=== PATIENT | female | born 1935 | race Caucasian/White ===

== ENCOUNTER 2016-11-18 08:01 | Emergency (ER) | payer MEDICARE, BC ==
[2016-11-18] MEDS ORDERED: Lactated Ringers 1,000 ML IV ONE (08:40)
[2016-11-18] MEDS ORDERED: Metoclopramide 10 MG/2 ML SDV IVPUSH ONE (08:40)
--- NOTE | 2016-11-18 09:00 | EDM.PDOC ---
ED HPI GI/ABDOMINAL - General Chief Complaint: Gastrointestinal Problem Stated Complaint: LOOSE STOOL /STOMACH Time Seen by Provider: 11/18/16 08:45 Source: Reports: Patient History Limitations: Reports: No limitations - History of Present Illness INITIAL COMMENTS - FREE TEXT/NARRATIVE: 81 yo female presents with 5 days of diarrhea and nausea without vomiting. No fever. No blood in stools. Minimal dizziness with standing. Dr. Barboza told her to come to the ER. Symptom Onset Date: 11/13/16 Timing/Duration: Reports: Day(s): Location: generalized (mild generalized abdominal pain/cramps) Quality: Reports: cramping Severity: mild Improves with: Reports: other (stooling) Worsens with: Reports: other (eating) Context: Reports: other (Had similar phenomenon in the past, not for many yrs.) Associated Symptoms (-Female): Reports: diarrhea, loss of appetite, nausea/ vomiting (no vomiting so far.). 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: Reports: Other (see below) (none) - Related Data Allergies/ADRs: Allergies Allergy/AdvReac Type Severity Reaction Status Date / Time No Known Allergies Allergy Verified 11/18/16 09:59 Home Meds: Home Meds HCTZ/Triamterene [Dyazide 25-37.5 MG] 1 cap PO DAILY 11/18/16 [History] Nitroglycerin [Nitrostat] 0.4 mg SL ASDIRECTED PRN 11/18/16 [History] amLODIPine [Norvasc] 5 mg PO DAILY 11/18/16 [History] ED ROS GENERAL - Review of Systems Review Of Systems: See Below Constitutional: Reports: no symptoms HEENT: Reports: No symptoms Respiratory: Reports: No Symptoms Cardiovascular: Reports: No symptoms GI/Abdominal: Reports: Abdominal pain (mild cramping.), Diarrhea, Decreased appetite, Nausea. Denies: Black stool, Bloody stool, Constipation, Distension, Flatus, Hematemesis, Hematochezia, Melena, Stool incontinence, Vomiting : Reports: no symptoms Musculoskeletal: Reports: no symptoms Skin: Reports: no symptoms Neurological: Reports: No Symptoms Psychiatric: Reports: No symptoms ED EXAM, GI/ABD - Physical Exam Exam: See Below Exam Limited By: No limitations General Appearance: alert, WD/WN, no apparent distress Eyes: bilateral: normal appearance Ears: normal external exam, normal canal, hearing grossly normal Nose: normal inspection, normal mucosa, no blood Throat/Mouth: Normal inspection, Normal lips, Normal teeth, Normal oropharynx, Normal voice, No airway compromise Head: atraumatic, normocephalic Neck: normal inspection, supple, non-tender Respiratory/Chest: no respiratory distress, lungs clear, normal breath sounds, no accessory muscle use Cardiovascular: regular rate, rhythm, no edema GI/Abdominal: normal bowel sounds, soft, non tender, no distention Back Exam: normal inspection Extremities: normal inspection, normal range of motion, non-tender, no pedal edema Neurological: alert, oriented, CN II-XII intact, normal cognition, no motor/ sensory deficits Psychiatric: normal affect, normal mood Skin Exam: Warm, Dry, Intact, Normal color, No rash Lymphatic: no adenopathy Course - Vital Signs Text/Narrative:: LR 1000 ml IV, Reglan 10 mg IV-feeling better, unable to stool. Last Recorded V/S: Last Vital Signs Temp 36.8 C 11/18/16 08:30 Pulse 60 11/18/16 08:30 Resp 18 11/18/16 08:30 BP 145/53 H 11/18/16 08:30 Pulse Ox 98 11/18/16 08:30 - Orders/Labs/Meds Orders: Active Orders 24 hr Category Date Time Status CDIFF TOXIN A+B GROUP [OP] Stat Lab 11/18/16 08:49 Uncollected Labs: Laboratory Tests 11/18/16 11/18/16 Range/Units 09:25 09:25 WBC 6.2 (4.5-12.0) X10-3/uL RBC 4.29 (3.23-5.20) x10(6)uL Hgb 13.0 (11.5-15.5) g/dL Hct 39.0 (30.0-51.3) % MCV 91.0 (80-96) fL MCH 30.3 (27.7-33.6) pg MCHC 33.2 (32.2-35.4) g/dL RDW 12.6 (11.5-15.5) % Plt Count 235 (125-369) X10(3)uL Sodium 136 (135-145) mmol/L Potassium 3.9 (3.5-5.3) mmol/L Chloride 105 (100-110) mmol/L Carbon Dioxide 25 (23-29) mmol/L BUN 23 (8-23) mg/dL Creatinine 0.6 (0.6-1.3) mg/dL Est Cr Clr Drug Dosing TNP Estimated GFR (MDRD) > 60 (>60) BUN/Creatinine Ratio 38.3 H (9-20) Glucose 106 (80-116) mg/dL Calcium 8.9 (8.6-10.2) mg/dL Meds: Medications Discontinued Medications Generic Name Dose Route Start Last Admin Trade Name Freq PRN Reason Stop Dose Admin Lactated Ringer's 1,000 mls @ 1,000 mls/hr 11/18/16 08:40 11/18/16 09:09 Ringers, Lactated IV 11/18/16 09:39 1,000 mls/hr BOLUS ONE Administration Metoclopramide HCl 10 mg 11/18/16 08:40 11/18/16 09:14 Reglan IVPUSH 11/18/16 08:41 10 mg ONETIME ONE Administration Departure - Departure Time of Disposition: 10:25 Disposition: Home, Self-Care 01 Condition: good Clinical Impression: Nausea Diarrhea Qualifiers: Diarrhea type: unspecified type Qualified Code(s): R19.7 - Diarrhea, unspecified - My Orders Last 24 Hours: My Active Orders 11/18/16 08:49 CDIFF TOXIN A+B GROUP [OP] Stat - Assessment/Plan Last 24 Hours: My Active Orders 11/18/16 08:49 CDIFF TOXIN A+B GROUP [OP] Stat
[2016-11-18 10:37] VITALS: BP 138/55
== END 2016-11-18 10:30 | disposition home or self-care (01) ==
LOC: FB.ED 08:01
DX: R19.7 Diarrhea, unspecified (principal)
CPT/HCPCS: 36415; 80048; 85027; 96361; 96374; 99283; J2765; J7120; 99284

== ENCOUNTER 2017-02-03 06:43 | Emergency (ER) | payer MEDICARE, BC ==
[2017-02-03] MEDS ORDERED: Sodium Chloride 0.9% 1,000 ML IV ONE (07:26)
[2017-02-03] MEDS ORDERED: Sodium Chloride 0.9% 10 ML Syringe FLUSH PRN (07:33)
[2017-02-03] MEDS ORDERED: cloNIDine 0.1 MG Tab PO ONE (08:58)
--- NOTE | 2017-02-03 09:25 | EDM.PDOC ---
ED HPI GENERAL MEDICAL PROBLEM - General Chief Complaint: Gastrointestinal Problem Stated Complaint: DIARRHEA,DEHYDRATING Time Seen by Provider: 02/03/17 07:08 Source of Information: Reports: Patient, Family History Limitations: Reports: No Limitations - History of Present Illness INITIAL COMMENTS - FREE TEXT/NARRATIVE: 81 y.o.w.f with h/o HTN came to the ed because she feels dehydrated, weight loss -unwanted- her BP on arrival was 197/87 and later on 220/80. Pt was recently started on lisinopril, which makes her cough, No N/V/D dizziness or any other acute medical issues at this time. Onset: Gradual Onset Date: 02/02/17 Onset Time: 08:00 Duration: Day(s): Location: Reports: Generalized Severity: Moderate Improves with: Reports: None Worsens with: Reports: None Associated Symptoms: Reports: No Other Symptoms Generalized Pain Score (Numeric/FACES): 5 - Related Data Allergies Allergy/AdvReac Type Severity Reaction Status Date / Time No Known Allergies Allergy Verified 02/03/17 07:03 Home Meds: Home Meds Nitroglycerin [Nitrostat] 0.4 mg SL ASDIRECTED PRN 11/18/16 [History] amLODIPine [Norvasc] 5 mg PO DAILY 11/18/16 [History] Escitalopram [Lexapro] 10 mg PO DAILY 02/03/17 [History] Hydrochlorothiazide 25 mg PO DAILY 02/03/17 [History] Lisinopril 10 mg PO DAILY 02/03/17 [History] Losartan [Cozaar] 25 mg PO DAILY #10 tablet 02/03/17 [Rx] Past Medical History Cardiovascular History: Reports: Hypertension, Stents Social & Family History - Tobacco Use Smoking Status *Q: Never Smoker Second Hand Smoke Exposure: No - Caffeine Use Caffeine Use: Reports: Coffee, Tea - Recreational Drug Use Recreational Drug Use: No ED ROS GENERAL - Review of Systems Review Of Systems: See Below Constitutional: Reports: No Symptoms HEENT: Reports: No Symptoms Respiratory: Reports: No Symptoms Cardiovascular: Reports: No Symptoms Endocrine: Reports: No Symptoms GI/Abdominal: Reports: No Symptoms : Reports: No Symptoms Musculoskeletal: Reports: No Symptoms Skin: Reports: No Symptoms Neurological: Reports: No Symptoms Psychiatric: Reports: No Symptoms Hematologic/Lymphatic: Reports: No Symptoms Immunologic: Reports: No Symptoms ED EXAM, GENERAL - Physical Exam Exam: See Below Exam Limited By: No Limitations General Appearance: Alert, WD/WN, Thin Eye Exam: Bilateral Eye: Normal Inspection Ears: Normal External Exam Ear Exam: Bilateral Ear: Auricle Normal Nose: Normal Inspection, Normal Mucosa Throat/Mouth: Normal Inspection, Normal Lips Head: Atraumatic, Normocephalic Neck: Normal Inspection, Supple, Non-Tender Respiratory/Chest: No Respiratory Distress, Lungs Clear, Normal Breath Sounds, No Accessory Muscle Use, Chest Non-Tender Cardiovascular: Normal Peripheral Pulses, Regular Rate, Rhythm Peripheral Pulses: 1+: Femoral (L), Femoral (R) GI/Abdominal: Normal Bowel Sounds, Soft, Non-Tender, No Organomegaly, No Distention, No Abnormal Bruit (Female) Exam: Deferred Rectal (Female) Exam: Deferred Back Exam: Normal Inspection, Full Range of Motion Extremities: Normal Inspection, Normal Range of Motion Neurological: Alert, Oriented, CN II-XII Intact, Normal Cognition, Normal Gait, No Motor/Sensory Deficits Psychiatric: Normal Affect, Normal Mood Skin Exam: Warm, Dry, Intact, Normal Color, No Rash Lymphatic: No Adenopathy Course - Vital Signs Text/Narrative:: 81 y.o.w.f with h/o HTN came to the ed because she feels dehydrated, weight loss -unwanted- her BP on arrival was 197/87 and later on 220/80. Pt was recently started on lisinopril, which makes her cough, No N/V/D dizziness or any other acute medical issues at this time. PE: Thin 81 y.o.w.f. in NAD BP 220/80 puls 70 Impression: hypertensive urgency Tx: Clonidine 0.1 mg Reexam: BP 135/68 Plan: Pt was d/c'd with instructions Last Recorded V/S: Last Vital Signs Temp 36.8 C 02/03/17 07:08 Pulse 55 L 02/03/17 11:09 Resp 20 02/03/17 07:08 BP 135/63 02/03/17 11:09 Pulse Ox 98 02/03/17 07:08 81 y.o.w.f with h/o HTN came to the ed because she feels dehydrated, weight loss -unwanted- her BP on arrival was 197/87 and later on 220/80. Pt was recently started on lisinopril, which makes her cough, No N/V/D dizziness or any other acute medical issues at this time. - Orders/Labs/Meds Orders: Active Orders 24 hr Category Date Time Status Saline Lock Insert [OM.PC] Routine Oth 02/03/17 07:33 Ordered Labs: Laboratory Tests 02/03/17 02/03/17 02/03/17 Range/Units 07:25 07:25 07:25 WBC 6.6 (4.5-12.0) X10-3/uL RBC 4.41 (3.23-5.20) x10(6)uL Hgb 13.6 (11.5-15.5) g/dL Hct 40.5 (30.0-51.3) % MCV 91.7 (80-96) fL MCH 30.8 (27.7-33.6) pg MCHC 33.6 (32.2-35.4) g/dL RDW 12.1 (11.5-15.5) % Plt Count 247 (125-369) X10(3)uL MPV 8.4 (7.4-10.4) fL Neut % (Auto) 68.3 (46-82) % Lymph % (Auto) 18.5 (13-37) % [place] % (Auto) 9.4 (4-12) % Eos % (Auto) 3 (1.0-5.0) % Baso % (Auto) 1 (0-2) % Neut # (Auto) 4.6 (1.6-8.3) # Lymph # (Auto) 1.2 (0.6-5.0) # [place] # (Auto) 0.6 (0.0-1.3) # Eos # (Auto) 0.2 (0.0-0.8) # Baso # (Auto) 0.0 (0.0-0.2) # Sodium 136 (135-145) mmol/L Potassium 4.0 (3.5-5.3) mmol/L Chloride 101 (100-110) mmol/L Carbon Dioxide 27 (23-29) mmol/L BUN 19 (8-23) mg/dL Creatinine 0.7 (0.6-1.3) mg/dL Est Cr Clr Drug Dosing 42.88 mL/min Estimated GFR (MDRD) > 60 (>60) BUN/Creatinine Ratio 27.1 H (9-20) Glucose 104 (80-116) mg/dL Calcium 9.5 (8.6-10.2) mg/dL B-Natriuretic Peptide 231 H (0-100) pg/mL Urine Color (YELLOW) Urine Appearance (CLEAR) Urine pH (5.0-6.5) Ur Specific [place] (1.010-1.025) Urine Protein (NEGATIVE) mg/dL Urine Glucose (UA) (NEGATIVE) mg/dL Urine Ketones (NEGATIVE) mg/dL Urine Occult Blood (NEGATIVE) Urine Nitrite (NEGATIVE) Urine Bilirubin (NEGATIVE) Urine Urobilinogen (NEGATIVE) mg/dL Ur Leukocyte Esterase (NEGATIVE) Urine WBC (0) Ur Squamous Epith Cells (NS,R,O) Urine Bacteria (NS) 02/03/17 Range/Units 08:59 WBC (4.5-12.0) X10-3/uL RBC (3.23-5.20) x10(6)uL Hgb (11.5-15.5) g/dL Hct (30.0-51.3) % MCV (80-96) fL MCH (27.7-33.6) pg MCHC (32.2-35.4) g/dL RDW (11.5-15.5) % Plt Count (125-369) X10(3)uL MPV (7.4-10.4) fL Neut % (Auto) (46-82) % Lymph % (Auto) (13-37) % [place] % (Auto) (4-12) % Eos % (Auto) (1.0-5.0) % Baso % (Auto) (0-2) % Neut # (Auto) (1.6-8.3) # Lymph # (Auto) (0.6-5.0) # [place] # (Auto) (0.0-1.3) # Eos # (Auto) (0.0-0.8) # Baso # (Auto) (0.0-0.2) # Sodium (135-145) mmol/L Potassium (3.5-5.3) mmol/L Chloride (100-110) mmol/L Carbon Dioxide (23-29) mmol/L BUN (8-23) mg/dL Creatinine (0.6-1.3) mg/dL Est Cr Clr Drug Dosing mL/min Estimated GFR (MDRD) (>60) BUN/Creatinine Ratio (9-20) Glucose (80-116) mg/dL Calcium (8.6-10.2) mg/dL B-Natriuretic Peptide (0-100) pg/mL Urine Color Yellow (YELLOW) Urine Appearance Clear (CLEAR) Urine pH 8.0 H (5.0-6.5) Ur Specific [place] 1.010 (1.010-1.025) Urine Protein Negative (NEGATIVE) mg/dL Urine Glucose (UA) Normal (NEGATIVE) mg/dL Urine Ketones Negative (NEGATIVE) mg/dL Urine Occult Blood Negative (NEGATIVE) Urine Nitrite Negative (NEGATIVE) Urine Bilirubin Negative (NEGATIVE) Urine Urobilinogen Normal (NEGATIVE) mg/dL Ur Leukocyte Esterase Negative (NEGATIVE) Urine WBC 0-5 (0) Ur Squamous Epith Cells Occasional (NS,R,O) Urine Bacteria Moderate H (NS) Meds: Medications Discontinued Medications Generic Name Dose Route Start Last Admin Trade Name Freq PRN Reason Stop Dose Admin Clonidine HCl 0.1 mg 02/03/17 08:58 02/03/17 09:03 Catapres PO 02/03/17 08:59 0.1 mg ONETIME ONE Administration Sodium Chloride 1,000 mls @ 999 mls/hr 02/03/17 07:26 02/03/17 07:58 Normal Saline IV 02/03/17 08:26 999 mls/hr .BOLUS ONE Administration Sodium Chloride 10 ml 02/03/17 07:33 Saline Flush FLUSH ASDIRECTED PRN Keep Vein Open Departure - Departure Time of Disposition: 11:25 Disposition: Home, Self-Care 01 Condition: good Clinical Impression: HTN (hypertension) Qualifiers: Hypertension type: essential hypertension Qualified Code(s): I10 - Essential ( primary) hypertension - Discharge Information Prescriptions: Losartan [Cozaar] 25 mg PO DAILY #10 tablet Referrals: Alejandro Barboza MD [Primary Care Provider] - Forms: ED Department Discharge Additional Instructions: Please f/u with Dr Barboza as scheduled this Thursday, please take the meds as recommended, hold Lisinopril, take Losartan instead. Please come back if your symptoms get worse acutely - My Orders Last 24 Hours: My Active Orders 02/03/17 07:33 Saline Lock Insert [OM.PC] Routine - Assessment/Plan Last 24 Hours: My Active Orders 02/03/17 07:33 Saline Lock Insert [OM.PC] Routine
[2017-02-03 11:09] VITALS: BP 135/63
== END 2017-02-03 11:35 | disposition home or self-care (01) ==
LOC: FB.ED 06:43
DX: I16.0 Hypertensive urgency (principal); Z79.899 Other long term (current) drug therapy
CPT/HCPCS: 36415; 80048; 81001; 83880; 85025; 96360; 99283; 99284; A9270; J7040

== ENCOUNTER 2017-02-27 04:25 | Emergency (ER) | payer MEDICARE, BC ==
[2017-02-27 06:18] VITALS: BP 157/59
--- NOTE | 2017-02-27 07:08 | ER ---
DATE SEEN: 02/27/2017 ADDENDUM: Initially the plans were to discontinue losartan as it may be causing her blood pressure problems. However, after second blood pressure came back at 157/69, dropped from 190/57, heart rate 56, the plan is to continue the losartan at the current dose, 50 mg twice a day. Get 6 to 12 more blood pressure readings before going back to see the doctor later this week, in the next 7 to 10 days. Write the blood pressures down on a 3 x 5 card and carry those with her to the doctor and be sure to drink at least 2 quarts of water a day. She does not appear to have any renal or vascular abnormalities and she is not on an ANDREA inhibitor, and at this point, I do not plan on adding a new blood pressure pill hydrochlorothiazide as was previously dictated moments ago. No new med is prescribed because her BP has come down in the ED with simple rest and a tincture of time. Conjecture: It is possible that the losartan (calcium channel joselyn) is causing mild decrease in heart rate, resulting in a compensatory increase in blood pressure to maintain appropriate cardiac output in the face of atherosclerotic vascular disease. The patient was seen at 0425 hours. /[id number] LUCINA/KELSIE HENSON
--- NOTE | 2017-02-28 07:49 | ER ---
DATE SEEN: 02/27/2017 CHIEF COMPLAINT: The patient "feels like crap." HISTORY OF PRESENT ILLNESS: She started feeling miserable at about 0200 hours this morning. No history of nausea, vomiting, diarrhea, chest pain, irregular heartbeat, lightheadedness, back pain, arm pain, jaw pain, neck pain, syncope or near syncope, frequency, urgency, or dysuria. She denies any compromise in vision. On 02/24/2017, her losartan was increased from 25 mg b.i.d. to 50 mg b.i.d. She continues to take amlodipine 5 mg daily and she is worried about her blood pressure. Current medication as above medication plus Lexapro 10 mg daily and nitroglycerin p.r.n. No diabetes, asthma, other serious illnesses, or heart disease. She has had previous gastric surgery for gastric ulcers years ago. On 02/03/2017, she had a blood pressure 197/87 and later 220/80. She "had been started on lisinopril approximately several weeks before that." She was seen for gastrointestinal problems, diarrhea, and dehydration. Pressure before discharge on 02/03/17 was 135/63 after having been flushed with fluid and treated with clonidine 0.1 mg On 02/03/17 she had a trace elevation of her BNP 231. Otherwise, creatinine was 0.7 and BUN was 19 and the BUN and creatinine ratio was 27 reflecting dehydration. The had a GFR greater than 60. On 02/03/17 her urine is negative except for specific gravity 0.010. On 02/03/17 she was advised to hold lisinopril and start losartan 25 mg daily. On review of the chart November 18, 2016, she had also a history of 5 days of diarrhea with nausea without vomiting. Her blood pressure then was 145/53 and heart rate 60s. She had normal BMP except for elevated BUN and creatinine ratio of 38 reflecting dehydration also. PAST MEDICAL HISTORY: Hypertension. No diabetes. No heart disease, stroke, asthma, or surgery. PHYSICAL EXAMINATION: VITAL SIGNS: On February 03, she had blood pressure 165/68. This is different than a blood pressure she took earlier in the morning. Approximately at 3 a.m., it was 207/95 and 190/57 per history. Later this morning, on 02/27/2017, blood pressure is 190/57, heart rate 62, respirations 15, and oxygen saturation 98%. Mean blood pressure 101. 44.9 kg. GENERAL: Alert woman with mild headache. No paresis, weakness, or compromise of speech. HEENT: PERRLA intact. 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 Mild AV nicking. No hemorrhages or exudates. Hearing is decreased. Pharynx without abnormality. Slightly dry mucosa. NECK: No bruits. HEART: S2 greater than S1. No tachycardia. There is no heart murmur. LUNGS: Clear to auscultation. ABDOMEN: Soft. No guarding. No rebound. No bruits. Carotids, no bruits. EXTREMITIES: Without abnormality. No pedal edema. ABDOMEN: Otherwise, soft. NEUROLOGIC: Deep tendon reflexes hypoactive in upper extremities and lower extremities. Cranial nerves 2 through 12 intact. Strength appropriate. No pronator drift or paresis. Regulatory Affairs Consultant is good. Gait appropriate. Negative Romberg. CURRENT MEDICATIONS: 1. Norvasc 5 mg daily. 2. Losartan 100 mg daily. 3. Lexapro 10 mg daily. LABORATORY DATA: CBC and CMP pending. ASSESSMENT: 1. Hypertension, etiology indeterminate. Consider adding hydrochlorothiazide 25 mg daily. Follow up with doctor next week. If the blood pressure continues to climb, consider diagnosis renovascular- mediated renal artery stenosis. 2. 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 3. Hypertension. 4. Retinal copper wiring of vessels. PLAN: Continue losartan, a calcium channel joselyn, 50 mg b.i.d. /[id number] LUCINA/REKHAL MTDD
== END 2017-02-27 06:30 | disposition home or self-care (01) ==
LOC: FB.ED 04:25
DX: I10 Essential (primary) hypertension (principal); I35.9 Nonrheumatic aortic valve disorder, unspecified; I70.1 Atherosclerosis of renal artery; Z79.899 Other long term (current) drug therapy
CPT/HCPCS: 36415; 80053; 81001; 85025; 99283

== ENCOUNTER 2017-06-21 08:00 | Emergency (ER) | payer MEDICARE, BC ==
[2017-06-21] MEDS ORDERED: Dextrose 5%-Lactated Ringers 1,000 ML IV SCH (10:00)
[2017-06-21 12:22] VITALS: BP 151/52
--- NOTE | 2017-06-22 11:36 | CR ---
INDICATION: 3 days post EGD and colonoscopy, with abdominal pain. Question micro-perforation. Traumatic colitis. No symptoms of bowel obstruction. ABDOMEN: Four images of the abdomen in supine and upright projections revealed a nonspecific pattern of gas and feces without evidence of free air or obstruction. No organomegaly, mass lesions, or pathologic calcifications were identified, other than vascular calcifications. Calcifications are noted in the aorta. Surgery is noted in the left upper quadrant and hiatal area. Evidence of previous surgery is also noted in the pelvis at the level of the bladder. 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 IMPRESSION: Nonacute abdomen. Multiple findings as noted above. No evidence of free air. MTDD
--- NOTE | 2017-06-22 15:08 | ER ---
DATE SEEN: 06/21/2017 TIME SEEN: The patient was seen at 0820 hours. CHIEF COMPLAINT: This 81-year-old woman presents with chief complaint of abdominal discomfort, diarrhea 3 to 4 yesterday in the morning and 1 episode today, and vomiting x1. HISTORY OF PRESENT ILLNESS: She had colonoscopy performed on 06/17/2017 that was accompanied with EGD. She has felt weak since then and presented because she feels so weak today. She did have biopsies. She does not know what the results are. PAST MEDICAL HISTORY: Significant for hypertension. She uses aspirin on a daily basis 81 mg, amlodipine 5 mg b.i.d. Otherwise healthy. She has had multiple surgeries of her foot and toe, FESTUS-BSO, 72% resection of her stomach (gastrostomy) for ulcers years ago, hernia repair, left rotator cuff repair, T and A, cataract extraction, bladder suspension for prolapsed bladder, and 2 stents placed in 2014. ALLERGIES: Allergic to adhesive and hydrocodone. REVIEW OF SYSTEMS: Negative except she gets short of breath when she goes up the hill. GI: Denies blood in her stool, black tarry stools, reflux, abdominal discomfort, fatty food intolerance, back pain, flank pain, previous renal stones, frequency, urgency, dysuria, or musculoskeletal complaints. She describes her abdominal pain as 5/10 in intensity. It has been present for last week on and off. It comes in waves. This seemed to decrease when she walks (is distracted). She was awakened by the abdominal pain. Most of the pain is located in the right lateral anterior flank and also suprapubic region. No history of trauma. She does not drink alcohol. Does not smoke. Has been drinking large amounts of Gatorade. No history of recent antibiotics or Clostridium difficile. "I just feel I have so much air." Had 3 to 5 episodes of diarrhea yesterday and 1 episode today. She restricts salt in her diet. Has no salt added diet. Review of systems otherwise negative except for noted above. PHYSICAL EXAMINATION: VITAL SIGNS: Blood pressure 161/54, heart rate 58, respirations 18, oxygen saturation is 54, and temperature is 36.7 degrees centigrade. CONSTITUTIONAL: The patient is a small asthenic woman, who looks her age, who has moderate cabazon's feet and wrinkling of the skin. Slightly dark pigmentation. She has a saucy personality, but is pleasant and not in your face responses. HEENT: PERRLA intact. TMs negative. Hearing decreased. She wears a hearing aid. NECK: No bruits. HEART: There is a split S1 and S2 is normal. No murmur. No irregularity of heartbeat. LUNGS: Clear to auscultation without rales, rhonchi, or wheezes. ABDOMEN: Soft. Midline healed scar noted of an umbilical hernia. Mild discomfort in the suprapubic area and right anterior flank. She has mild discomfort in left superior iliac crest, parasternal muscles that is reproducible. The sacroiliac joints are nontender. Straight leg is negative. Range of motion of the hip is normal. RECTAL/VAGINAL: Not performed. DIAGNOSTIC AND LABORATORY DATA: X-ray suggests air and gastric bubble, no evidence for microperforation. Stool has been obtained for C. diff and also stool culture. Laboratory findings are all relatively normal. White count 7700, PMNs 69, lymphocytes 15, monos 8, 7% eosinophils - mild elevation, hemoglobin 13.1, and platelets 244,000. Complete metabolic panel; sodium 136, potassium 4.1, chloride 105, bicarb 22, BUN and creatinine ratio 31 - reflects dehydration, and creatinine clearance is greater than 60. Urinalysis is negative except for few squamous cells. ASSESSMENT: 1. Status post colonoscopy with onset of abdominal discomfort. No evidence for abnormality was noted on the colonoscopy per the patient's discussion. I do not have the report. 2. Hypertension, treated. 3. History of 72% gastric resection. 4. Total abdominal hysterectomy and bilateral salpingo-oophorectomy. 5. Previous toes fracture. 6. Allergy to adhesive. 7. Herniorrhaphy. 8. Left rotator cuff repair. 9. Tonsillectomy and adenoidectomy. 10.Cataract surgery. 11.Prolapsed uterus suspension. 12.Two stents placement 2014. 13.Very high probability the patient with mechanical irritation on colonoscopy. Still possibly having microperforation, even though there is no gas noted in the abdomen. No suggestion of new infection that warrants antibiotic. 14.The patient has salt restricted diet. In fact, no salt added diet and this may be the reason why she is weak. She may have lost total body stores of salt, even though her sodium is normal. She has been advised to add salt to her diet for least 2 weeks until she stabilizes, and then also she received a liter of D5 lactated Ringer's this morning and was dismissed. She felt much better. She is to follow up with doctor in a week and gradually progressively increase her activity as tolerated. Add salt to her diet. /[id number] LUCINA/KELSIE
== END 2017-06-21 11:39 | disposition home or self-care (01) ==
LOC: FB.ED 08:00
DX: R10.9 Unspecified abdominal pain (principal); R53.1 Weakness; I10 Essential (primary) hypertension; Z98.890 Other specified postprocedural states; Z98.49 Cataract extraction status, unspecified eye; Z98.84 Bariatric surgery status
CPT/HCPCS: 36415; 74020; 80053; 81001; 85025; 96360; 99284; J7042; 99283

== ENCOUNTER 2017-07-26 16:38 | Emergency (ER) | payer MEDICARE, BC ==
[2017-07-26 19:05] VITALS: BP 167/70
--- NOTE | 2017-07-26 20:26 | ER ---
DATE SEEN: 07/26/2017 CHIEF COMPLAINT: Body aches. HISTORY OF PRESENT ILLNESS: This is an 81-year-old female complaining of feeling body aches, tired, symptoms present for the last 1-1/2 days. No fever, chills and no decrease in oral intake, diarrhea, nausea, or vomiting. She is worried about being dehydrated. The reports that she has been over working and has been tired lately. REVIEW OF SYSTEMS: No headache. No sore throat. PAST MEDICAL HISTORY: Hypertension, dehydration. ALLERGIES: Hydrocodone. MEDICATIONS: 1. Aspirin. 2. Norvasc. PHYSICAL EXAMINATION: GENERAL: She is well hydrated. VITAL SIGNS: Her blood pressure is 169/62, pulse is 62, and she is afebrile. ENT: Negative. Normal moisture mucous membranes. CHEST: Clear. CARDIOVASCULAR: Normal. EXTREMITIES: No edema was noted. SKIN: No pallor or jaundice. Normal skin turgor. MENTAL STATUS: Alert. LABORATORY DATA: BUN was 30 and sodium 134. CBC was normal. IMPRESSION: 1. Mild dehydration. 2. Acute viral syndrome. PLAN: Supportive therapy. Continue with fluid intake, nutrition, adequate rest. Tylenol for pain as needed and follow up in the office in 1 to 2 days. /[id number] 2017 BRENNA/KELSIE
== END 2017-07-26 19:00 | disposition home or self-care (01) ==
LOC: FB.ED 16:38
DX: E86.0 Dehydration (principal); B34.9 Viral infection, unspecified
CPT/HCPCS: 36415; 80048; 81001; 85025; 87086; 87088; 87186; 99282; 99284

== ENCOUNTER 2017-10-18 18:50 | Emergency (ER) | payer MEDICARE, BC ==
[2017-10-18] MEDS ORDERED: Metoprolol Tartrate 25 MG Tab PO SCH (20:00)
[2017-10-18 20:03] VITALS: BP 211/80
--- NOTE | 2017-10-21 10:45 | ER ---
DATE SEEN: 10/18/2017 TIME SEEN: The patient was seen at 1850 hours. HISTORY OF PRESENT ILLNESS: This , pleasant 82-year-old woman with history of hypertension, left parietal headache, 5/10 in intensity, mild pressure-like, throughout the day, with complaints of associated weakness and tiredness but no paresis. PAST MEDICAL HISTORY: Significant for left rotator cuff surgery, right inguinal hernia, ulcer surgery, hysterectomy, and hammertoe surgery. ALLERGIES: Hydrocodone. MEDICATIONS: 1. Aspirin. 2. Amlodipine 5 mg b.i.d. The patient was seen by Dr. Barboza. For some reason, she has received a prescription from [facility] in [place] and noted that she was taking these pills. It turns out that her notes that it was a pain pill, was not her blood pressure pill, and she has cut off her amlodipine. So she has been off her amlodipine for least 2+ days, since she started this other pill. She thought that was a blood pressure pill, but when it was brought to the attention of someone else, they found it was a pain pill. She did not bring that pill bottle, but she brought her amlodipine pill bottle with her. She denies renal problems. REVIEW OF SYSTEMS: HEENT: Wears glasses. Decreased hearing. Denies compromise or difficulty swallowing. Multiple teeth are missing. NECK: There is mild stiffness today. No fever. No chills. No neck pain. CARDIORESPIRATORY: Without chest pain, irregular heartbeat or pressure, shortness of breath. GI: No nausea, vomiting, diarrhea, constipation, blood in stool, black or tarry stool. EXTREMITIES: Without swelling or edema. MUSCULOSKELETAL: She feels weaker than usual. NEUROLOGICAL: Denies CV procedures or other head injury. PHYSICAL EXAMINATION: VITAL SIGNS: Initial blood pressure 208/71. She noted she had an elevated blood pressure at home. Subsequent blood pressures 211/82, 211/80, and 220/71 at 1920 hours. GENERAL: notes that, "She has marked difficulty with anxiety and stress, and with elevated pressure she finds negatives in everything." CONSTITUTIONAL: Thin woman, who has multiple venetie ira's feet, has absent teeth, and much marked angularity to facial structure with minimal subcutaneous support for the surrounding facial structures. HEENT: PERRLA intact. Eyegrounds without hemorrhages or exudates or AV nicking. Optic cup tests normal. Venous pulsations are normal. Hearing decreased. Pharynx otherwise without abnormality except for multiple teeth are missing without infections of the other teeth and gingival surfaces. NECK: No bruits. No cervical adenopathy. No thyromegaly. LUNGS: Clear without rales, rhonchi. HEART: S1-S2. S2 is greater than S1. No arrhythmias. No tachycardia. ABDOMEN: Soft. No guarding. No abdominal discomfort. No bruits. No bruits in the neck. No guarding. No rebound. PELVIC: Not performed. LOWER EXTREMITIES: Without pedal edema. NEUROLOGICAL: Deep tendon reflex in upper and lower extremities 1+, normoactive. Cranial nerves 2 through 12 intact, although she has decreased hearing. Oriented x3. Gait intact. Romberg negative. No past pointing. No pronator drift. No dysmetria. No tremor. LABORATORY STUDIES: CBC is normal. The CMP is negative except for BUN is 23, trace elevated, and BUN creatinine ratio 32.9, suggests dehydration. AST is 42, ALT is 49. Urinalysis negative, pH 7, rare bacteria, occasional squamous epithelial cells. ASSESSMENT: 1. Hypertension. 2. Noncompliance; she was taking the wrong blood pressure pill. She was taking pain pills, and was supposed to take daily amlodipine 5 mg b.i.d. 3. Status post-surgery, left shoulder rotator cuff, right inguinal herniorrhaphy, ulcer surgery, hysterectomy, and hammertoe surgery. 4. Status post old smoker. 5. Almost edentulous. 6. Hypertension secondary to taking the wrong pills. 7. Anxiety disorder. She was taught relaxation exercises. She actually went to sleep and felt much better in that regard, but her blood pressure did not change after repeat blood pressures were taken, even after she rested it was 211/80. The patient was given her amlodipine dose that she was supposed to take at this time a day; also given 25 mg of metoprolol tartrate and also a dose of 10 tablets to be taken daily. Perhaps she should have been placed b.i.d. metoprolol tartrate but appear to have been on once daily daily dose of metoprolol tartrate. She is to get 6 different blood pressures. When she has gotten those obtained, she should call her doctor to determine whet would optimal for her BP treatment. Also is going to check on the pills that were prescribed at the drug store in [place]. It is possible there could have been a mix-up, instead of getting blood pressure pills, he thinks she received pain pills. Follow up with a call to their doctor tomorrow. /[id number] 1914 LUCINA/KELSIE HENSON
== END 2017-10-18 20:32 | disposition home or self-care (01) ==
LOC: FB.ED 18:50
DX: I10 Essential (primary) hypertension (principal); F41.9 Anxiety disorder, unspecified; Z88.5 Allergy status to narcotic agent; Z79.82 Long term (current) use of aspirin; Z79.899 Other long term (current) drug therapy; Z90.710 Acquired absence of both cervix and uterus; Z87.891 Personal history of nicotine dependence; Z91.19 Patient's noncompliance with other medical treatment and regimen
CPT/HCPCS: 36415; 80053; 81001; 85025; 99283; A9270